=== PATIENT | female | born 1945 | race Caucasian/White ===

== ENCOUNTER 2020-08-31 11:47 | Emergency (ER) | payer OTHER, MEDICARE ==
[2020-08-31 11:56] VITALS: TEMP 98.1; BMI 25.9
[2020-08-31 12:58] LABS: BASO % 0.5 % (0-2.0); EOS % 0.4 % (0-4.5); HEMATOCRIT 39.6 % (32.4-45.2); HEMOGLOBIN 13.1 GM/dl (10.7-15.3); MCH 30.5 pg (25.7-33.7); MCHC 32.9 g/dl (32.0-36.0); MEAN CELL VOLUME 92.7 fl (80-96); MEAN PLT VOLUME 9.2 fl (7.5-11.1); MONO % 5.4 % (3.8-10.2); NEUT % 83.7 % (42.8-82.8); PLATELET COUNT 188 K/MM3 (134-434); RBC 4.27 M/mm3 (3.60-5.2); RDW 13.1 % (11.6-15.6); WHITE BLOOD COUNT 7.8 K/mm3 (4.0-10.8)
[2020-08-31 12:59] LABS: EPITHELIAL CELLS RARE /hpf
[2020-08-31 13:06] LABS: ALBUMIN 4.1 g/dl (3.4-5.0); BILIRUBIN,TOTAL 0.4 mg/dl (0.2-1); CREATININE 0.7 mg/dl (0.55-1.3); POTASSIUM 3.7 mmol/L (3.5-5.1); TOT PROT 6.6 g/dl (6.4-8.2)
[2020-08-31] MEDS ORDERED: CEFTRIAXONE 1 GM in DEXTROSE 5%-WATER - 100 ML IVPB ONE (13:06)
[2020-08-31] MEDS ORDERED: cefTRIAXone SODIUM 1 GM VIAL ONE (13:17)
[2020-08-31 13:23] VITALS: BP 151/80; PULSE 76
== END 2020-08-31 13:44 | disposition home or self-care (01) ==
LOC: FER 11:47
DX: N39.0 Urinary tract infection, site not specified (principal)
CPT/HCPCS: 36415; 80053; 81003; 81015; 84484; 85025; 87086; 87186; 93005; 99284-25; C9803; U0003

== ENCOUNTER 2023-09-14 16:05 | Emergency (ER) | payer BC, MEDICARE, OTHER ==
[2023-09-14 16:24] VITALS: BP 127/63; PULSE 88; RESP 16; TEMP 97.7; BMI 22.3
[2023-09-14] MEDS ORDERED: SODIUM CHLORIDE 1,000 ML IV ONE (16:32)
[2023-09-14 17:14] LABS: HEMATOCRIT 39.6 % (32.4-45.2); HEMOGLOBIN 13.1 G/dL (10.7-15.3); MCH 30.1 pg (25.7-33.7); MCHC 33.1 g/dl (32.0-36.0); MEAN PLT VOLUME 9.1 fl (7.5-11.1); RBC 4.35 10^6/uL (3.60-5.2); RDW 15.4 % (11.6-15.6); WHITE BLOOD COUNT 5.5 10^3/uL (4.0-10.8)
[2023-09-14 17:31] LABS: PLATELET ESTIMATE ADEQUATE
[2023-09-14 17:34] LABS: ALBUMIN 4.6 g/dl (3.4-5.0); BILIRUBIN,TOTAL 0.5 mg/dl (0.2-1); EPITHELIAL CELLS 0-5 /hpf; MAGNESIUM 1.1 mg/dL (1.8-2.4); POTASSIUM 4.2 mmol/L (3.5-5.1)
== END 2023-09-14 20:08 | disposition home or self-care (01) ==
LOC: FER 16:05
PROC: 3E0337Z Introduction of Electrolytic and Water Balance Substance into Peripheral Vein, Percutaneous Approach (ICD-10-PCS; principal; 2023-09-14)
DX: R19.7 Diarrhea, unspecified (principal); R10.9 Unspecified abdominal pain
CPT/HCPCS: 36415; 74177-TC; 80053; 81003; 81015; 83735; 85027; 87086; 99285-25; Q9967

== ENCOUNTER 2024-06-11 22:28 | Emergency (ER) | payer BC ==
[2024-06-11 22:41] VITALS: BMI 21.4
[2024-06-11] MEDS ORDERED: METOPROLOL TARTRATE 5 MG/5 ML VIAL ONE ×3 (23:02→23:36)
[2024-06-11] MEDS: METOPROLOL TARTRATE 5 MG/5 ML VIAL IVPUSH ONE ×3 (23:10→23:42)
[2024-06-11 23:14] LABS: BASO % 0.3 % (0-2.0); EOS % 0.2 % (0-4.5); HEMATOCRIT 39.7 % (32.4-45.2); HEMOGLOBIN 13.3 GM/dL (10.7-15.3); LYMPH % 13.3 % (8-40); MCH 30.6 pg (25.7-33.7); MCHC 33.6 g/dl (32.0-36.0); MEAN CELL VOLUME 91.1 fl (80-96); MEAN PLT VOLUME 8.8 fl (7.5-11.1); MONO % 6.4 % (3.8-10.2); NEUT % 79.8 % (42.8-82.8); PLATELET COUNT 216 10^3/uL (134-434); RBC 4.36 M/mm3 (3.60-5.2); RDW 13.8 % (11.6-15.6); WHITE BLOOD COUNT 9.9 K/mm3 (4.0-10.0)
[2024-06-11 23:19] LABS: INR 1.47 (0.83-1.09); PROTHROMBIN TIME (PATIENT) 16.7 SEC (9.7-13.0)
[2024-06-11 23:22] LABS: ACTIVATED PTT 41.8 SECONDS (25.2-36.5)
[2024-06-11 23:33] LABS: POTASSIUM 4.4 mmol/L (3.5-5.1)
[2024-06-11 23:35] LABS: CALCIUM 9.4 mg/dL (8.5-10.1)
[2024-06-11 23:36] LABS: BLOOD UREA NITROGEN 15.7 mg/dL (7-18); MAGNESIUM 1.4 mg/dL (1.8-2.4)
[2024-06-11 23:39] LABS: CREATININE 0.8 mg/dL (0.55-1.3)
[2024-06-11 23:40] LABS: BILIRUBIN,TOTAL 0.6 mg/dL (0.2-1)
[2024-06-11 23:41] LABS: TOT PROT 6.7 g/dl (6.4-8.2)
[2024-06-11] MEDS: SODIUM CHLORIDE 0.9% 500 ML INFUS.BAG IV ONE (23:50)
[2024-06-12] MEDS ORDERED: METOPROLOL TARTRATE 50 MG TABLET (FP) ONE (00:26)
[2024-06-12] MEDS: METOPROLOL TARTRATE 50 MG TABLET (FP) PO ONE (00:30)
[2024-06-12] MEDS ORDERED: MAGNESIUM SULFATE IN WATER 2 GM/50 ML IVPB IVPB ONE (01:08)
[2024-06-12] MEDS: MAGNESIUM SULFATE IN WATER 2 GM/50 ML IVPB IVPB ONE (01:13)
[2024-06-12 01:45] VITALS: BP 94/51; PULSE 115; RESP 23; TEMP 97.6
== END 2024-06-12 02:07 | disposition home or self-care (01) ==
LOC: JER 22:28
PROC: 3E033GC Introduction of Other Therapeutic Substance into Peripheral Vein, Percutaneous Approach (ICD-10-PCS; 2024-06-11)
PROC: 3E033GC Introduction of Other Therapeutic Substance into Peripheral Vein, Percutaneous Approach (ICD-10-PCS; 2024-06-11)
PROC: 3E033GC Introduction of Other Therapeutic Substance into Peripheral Vein, Percutaneous Approach (ICD-10-PCS; principal; 2024-06-12)
DX: R00.2 Palpitations (principal); I48.91 Unspecified atrial fibrillation; R00.0 Tachycardia, unspecified
CPT/HCPCS: 36415; 71045-TC-FY; 80053; 83735; 85025; 85610; 85730; 93005; 93010; 99285-25